=== PATIENT | female | born 1965 | race Caucasian/White ===

== ENCOUNTER 2017-02-28 13:55 | Outpatient (CLI) | payer OTHER, BC | END 2017-02-28 13:56 | disposition critical access hospital (66) | LOC: EMS 13:55 | PROVIDERS: ATTEND Surgery | DX: M54.2 Cervicalgia (principal); M25.551 Pain in right hip; R51 Headache; V58.5XXA Driver of pick-up truck or van injured in noncollision transport accident in traffic accident, initial encounter; Y92.413 State road as the place of occurrence of the external cause | CPT/HCPCS: A0425; A0429 ==

== ENCOUNTER 2017-02-28 14:25 | Emergency (ER) | payer OTHER, BC ==
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
[2017-02-28] MEDS ORDERED: IBUPROFEN 600 MG TABLET PO STA (14:53)
[2017-02-28] MEDS ORDERED: ACETAMINOPHEN 325 MG TABLET PO STA (14:53)
[2017-02-28] MEDS ORDERED: ACETAMINOPHEN 325 MG TABLET PO ONE (14:57)
[2017-02-28] MEDS ORDERED: IBUPROFEN 600 MG TABLET PO ONE (14:57)
--- NOTE | 2017-02-28 15:31 | CT Preliminary Report ---
Exam: CT Head W/O IMPRESSION: Normal head CT. [facility] SITE ID: [id number]
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
--- NOTE | 2017-02-28 15:35 | CT Preliminary Report ---
Exam: CT Cervical Spine W/O IMPRESSION: Mild degenerative changes. No acute disease. [facility] SITE ID: [id number]
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
--- NOTE | 2017-02-28 15:38 | XRAY Preliminary Report ---
Exam: XR Lumbar Spine 2 View IMPRESSION: 1. Minimal grade 1 anterolisthesis of L5, apparently asymmetric on the left with probable underlying partial spondylolysis. 2. Mild degenerative changes including disk space narrowing at L5-S1. [facility] SITE ID: [id number]
--- NOTE | 2017-02-28 15:39 | XRAY Preliminary Report ---
Exam: XR Chest 2 View PA/LAT IMPRESSION: No acute disease. [facility] SITE ID: [id number]
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
[2017-02-28] MEDS ORDERED: HYDROcod/ACETAM 5/325 MG TABLET PO STA (15:59)
[2017-02-28] MEDS ORDERED: HYDROcod/ACETAM 5/325 MG TABLET ONE (16:00)
[2017-02-28] MEDS ORDERED: oxyCOD/ACETAMIN 5 MG/325 MG TABLET PO STA (16:03)
[2017-02-28] MEDS ORDERED: oxyCOD/ACETAMIN 5 MG/325 MG TABLET PO ONE (16:03)
[2017-02-28 16:50] VITALS: BP 105/71
== END 2017-02-28 16:50 | disposition home or self-care (01) ==
LOC: ED 14:25
DX: S16.1XXA Strain of muscle, fascia and tendon at neck level, initial encounter (principal); S00.83XA Contusion of other part of head, initial encounter; V48.5XXA Car driver injured in noncollision transport accident in traffic accident, initial encounter; Y92.488 Other paved roadways as the place of occurrence of the external cause
CPT/HCPCS: 70450; 71020; 72100; 72125; 99283; 99284; A9270